=== PATIENT | male | born 1975 | race African-American/Black ===

== ENCOUNTER 2017-08-30 15:42 | Emergency (ER) | payer OTHER | END 2017-08-30 22:07 | disposition left against medical advice (07) | LOC: FTE 15:42 | DX: Z53.21 Procedure and treatment not carried out due to patient leaving prior to being seen by health care provider (principal) ==

== ENCOUNTER 2017-09-05 16:53 | Emergency (ER) | payer OTHER ==
[2017-09-05 20:28] LABS: ADD MAN DIFF? NO
[2017-09-05 20:29] LABS: BASOPHILS % 0.2 % (0.0-2.0); EOSINOPHILS # 0.1 10^3/ul (0.0-0.5); EOSINOPHILS % 1.7 % (0.0-7.0); HEMATOCRIT 38.3 % (42.0-52.0); HEMOGLOBIN 12.3 g/dl (14.0-18.0); LYMPHOCYTES # 2.7 10^3/ul (0.8-2.9); LYMPHOCYTES % 32.1 % (15.0-51.0); MEAN CORPUSCULAR HEMOGLOBIN 28.2 pg (29.0-33.0); MEAN CORPUSCULAR HGB CONC 32.1 g/dl (32.0-37.0); MEAN CORPUSCULAR VOLUME 87.8 fl (82.0-101.0); MEAN PLATELET VOLUME 9.9 fl (7.4-10.4); MONOCYTE # 0.4 10^3/ul (0.3-0.9); MONOCYTES % 4.8 % (0.0-11.0); NEUTROPHIL # 5.1 10^3/ul (1.6-7.5); NEUTROPHILS % 60.8 % (39.0-77.0); PLATELET COUNT 357 10^3/UL (140-415); RED BLOOD COUNT 4.36 10^6/ul (4.70-6.10); RED CELL DISTRIBUTION WIDTH 13.2 % (11.5-14.5)
[2017-09-05 20:29] LABS: WHITE BLOOD COUNT 8.3 10^3/ul (4.8-10.8)
[2017-09-05 20:36] LABS: INR 1.03; PROTIME 13.6 Sec (11.9-14.9); PT RATIO 1.1
[2017-09-05 20:37] LABS: PARTIAL THROMBOPLASTIN TIME 32.2 Sec (25.0-35.0)
[2017-09-05 20:38] LABS: ALANINE AMINOTRANSFERASE 60 IU/L (13-69); ALBUMIN 3.7 g/dl (3.3-4.9); ALBUMIN/GLOBULIN RATIO 0.94; ALKALINE PHOSPHATASE 79 IU/L (42-121); AMYLASE 89 U/L (11-123); ANION GAP 14 (8-16); ASPARTATE AMINO TRANSFERASE 43 IU/L (15-46); BLOOD UREA NITROGEN 16 mg/dl (7-20); CALCIUM 8.9 mg/dl (8.4-10.2); CARBON DIOXIDE 27 mmol/L (21-31); CHLORIDE 106 mmol/L (97-110); CREATININE 1.11 mg/dl (0.61-1.24); GLUCOSE 102 mg/dl (70-220); LIPASE 81 U/L (23-300); POTASSIUM 3.9 mmol/L (3.5-5.1); SODIUM 143 mmol/L (135-144); TOTAL PROTEIN 7.6 g/dl (6.1-8.1)
[2017-09-05] MEDS: ONDANSETRON 4 MG INJ IV (20:45)
[2017-09-05] MEDS: morphine 4 MG/ML VIAL IV (20:45)
[2017-09-05] MEDS: METHYLPREDNISOLONE 125 MG INJ IV (21:10)
[2017-09-05] MEDS: AZITHROMYCIN 500MG/NS (PMX) 250 ML IVPB (21:10)
[2017-09-05] MEDS: CEFTRIAXONE 1 GM/50 ML (PMX) 50 ML IVPB (22:46)
== END 2017-09-06 01:03 | disposition home or self-care (01) ==
LOC: E/R 09-06 01:03
DX: J18.1 Lobar pneumonia, unspecified organism (principal); J45.909 Unspecified asthma, uncomplicated; F17.210 Nicotine dependence, cigarettes, uncomplicated; R07.9 Chest pain, unspecified
CPT/HCPCS: 71045; 80053; 82150; 83690; 85025; 85610; 85730; 87400; 93005; 96374; 96375; 99285-25

== ENCOUNTER 2017-12-09 08:49 | Emergency (ER) | payer OTHER ==
[2017-12-09] MEDS: ALBUTEROL 0.5% (NEB) 2.5 MG/0.5 ML AMP INH (09:33)
[2017-12-09] MEDS: IPRATROPIUM (NEB) 0.5 MG/2.5 ML AMP NEB (09:33)
== END 2017-12-09 10:07 | disposition home or self-care (01) ==
LOC: FTE 08:49
DX: J45.901 Unspecified asthma with (acute) exacerbation (principal); J06.9 Acute upper respiratory infection, unspecified; F17.210 Nicotine dependence, cigarettes, uncomplicated
CPT/HCPCS: 71045; 94644; 99283-25

== ENCOUNTER 2018-06-26 03:41 | Emergency (ER) | payer OTHER ==
[2018-06-26] MEDS: DEXAMETHASONE 10 MG/ML 1 ML INJ IM (04:08)
[2018-06-26] MEDS: ALBUTEROL 0.083% (NEB) 2.5 MG/3 ML AMP HHN (04:11)
[2018-06-26] MEDS: IPRATROPIUM (NEB) 0.5 MG/2.5 ML AMP HHN (04:12)
== END 2018-06-26 04:22 | disposition home or self-care (01) ==
LOC: FTE 03:41
DX: J45.901 Unspecified asthma with (acute) exacerbation (principal); F17.210 Nicotine dependence, cigarettes, uncomplicated; Z21 Asymptomatic human immunodeficiency virus [HIV] infection status
CPT/HCPCS: 99283-25; Z7502

== ENCOUNTER 2018-07-11 02:38 | Emergency (ER) | payer OTHER | END 2018-07-11 03:20 | disposition home or self-care (01) | LOC: FTE 02:38 | DX: Z76.0 Encounter for issue of repeat prescription (principal); J45.909 Unspecified asthma, uncomplicated; Z21 Asymptomatic human immunodeficiency virus [HIV] infection status; Z87.891 Personal history of nicotine dependence | CPT/HCPCS: 99281; Z7502 ==

== ENCOUNTER 2018-08-07 06:03 | Emergency (ER) | payer OTHER | END 2018-08-07 06:50 | disposition home or self-care (01) | LOC: FTE 06:03 | DX: Z76.0 Encounter for issue of repeat prescription (principal); J45.909 Unspecified asthma, uncomplicated | CPT/HCPCS: 99281; Z7502 ==

== ENCOUNTER 2018-09-22 16:42 | Emergency (ER) | payer OTHER ==
[2018-09-22 17:25] LABS: ADD MAN DIFF? NO
[2018-09-22] MEDS: ALBUTEROL 0.5% (NEB) 2.5 MG/0.5 ML AMP INH (17:29)
[2018-09-22] MEDS: IPRATROPIUM (NEB) 0.5 MG/2.5 ML AMP INH (17:29)
[2018-09-22 17:32] LABS: BASOPHILS % 0.4 % (0.0-2.0); EOSINOPHILS # 0.1 10^3/ul (0.0-0.5); EOSINOPHILS % 0.7 % (0.0-7.0); HEMATOCRIT 40.1 % (42.0-52.0); LYMPHOCYTES # 1.2 10^3/ul (0.8-2.9); LYMPHOCYTES % 16.4 % (15.0-51.0); MEAN CORPUSCULAR HEMOGLOBIN 29.3 pg (29.0-33.0); MEAN CORPUSCULAR HGB CONC 32.4 g/dl (32.0-37.0); MEAN CORPUSCULAR VOLUME 90.3 fl (82.0-101.0); MEAN PLATELET VOLUME 10.5 fl (7.4-10.4); MONOCYTE # 0.8 10^3/ul (0.3-0.9); MONOCYTES % 11.4 % (0.0-11.0); NEUTROPHIL # 5.2 10^3/ul (1.6-7.5); PLATELET COUNT 232 10^3/UL (140-415); RED BLOOD COUNT 4.44 10^6/ul (4.70-6.10); RED CELL DISTRIBUTION WIDTH 12.4 % (11.5-14.5)
[2018-09-22 17:32] LABS: WHITE BLOOD COUNT 7.3 10^3/ul (4.8-10.8)
[2018-09-22] MEDS: METHYLPREDNISOLONE 125 MG INJ IV (17:37)
[2018-09-22] MEDS: CEFTRIAXONE 1 GM/50 ML (PMX) 50 ML IVPB (17:37)
[2018-09-22] MEDS: SODIUM CHLORIDE 0.9% 1L BAG IV* (17:37)
[2018-09-22] MEDS: IBUPROFEN 600 MG TAB PO (17:38)
[2018-09-22 17:47] LABS: INR 1.05; PROTIME 13.8 Sec (11.9-14.9); PT RATIO 1.1
[2018-09-22 17:49] LABS: ALANINE AMINOTRANSFERASE 11 IU/L (13-69); ALBUMIN 4.1 g/dl (3.3-4.9); ALBUMIN/GLOBULIN RATIO 1.24; ALKALINE PHOSPHATASE 102 IU/L (42-121); ANION GAP 11 (5-13); ASPARTATE AMINO TRANSFERASE 27 IU/L (15-46); BILIRUBIN,INDIRECT 0.2 mg/dl (0-1.1); BILIRUBIN,TOTAL 0.2 mg/dl (0.2-1.3); BLOOD UREA NITROGEN 15 mg/dl (7-20); CALCIUM 8.9 mg/dl (8.4-10.2); CARBON DIOXIDE 26 mmol/L (21-31); CHLORIDE 103 mmol/L (97-110); CREATININE 1.13 mg/dl (0.61-1.24); Estimated GFR > 60 mL/min (>60); GLUCOSE 105 mg/dl (70-220); LIPASE 25 U/L (23-300); POTASSIUM 4.1 mmol/L (3.5-5.1); SODIUM 140 mmol/L (135-144); TOTAL PROTEIN 7.4 g/dl (6.1-8.1)
[2018-09-22 18:01] LABS: TROPONIN-I < 0.012 ng/ml (0.000-0.120)
[2018-09-22] MEDS: AZITHROMYCIN 500MG/NS (PMX) 250 ML IVPB (19:00)
[2018-09-22 21:28] LABS: LACTIC ACID 2.7 mmol/L (0.5-2.0)
== END 2018-09-22 22:15 | disposition short-term general hospital (02) ==
LOC: E/R 22:15
DX: J45.41 Moderate persistent asthma with (acute) exacerbation (principal); B20 Human immunodeficiency virus [HIV] disease; F15.10 Other stimulant abuse, uncomplicated; Z87.891 Personal history of nicotine dependence
CPT/HCPCS: 36415; 71045; 80053; 83605; 83690; 84484; 85025; 85610; 85730; 87040; 87400; 93005; 94644; 96374; 96375; 99285-25

== ENCOUNTER 2018-10-14 18:18 | Emergency (ER) | payer OTHER | END 2018-10-14 22:40 | disposition home or self-care (01) | LOC: FTE 18:18 | DX: J45.901 Unspecified asthma with (acute) exacerbation (principal); Z21 Asymptomatic human immunodeficiency virus [HIV] infection status; Z76.0 Encounter for issue of repeat prescription | CPT/HCPCS: 99281 ==

== ENCOUNTER 2018-11-02 10:40 | Emergency (ER) | payer OTHER ==
[2018-11-02] MEDS: predniSONE 20 MG TAB PO (11:01)
== END 2018-11-02 11:42 | disposition home or self-care (01) ==
LOC: E/R 10:40
DX: J45.901 Unspecified asthma with (acute) exacerbation (principal); Z21 Asymptomatic human immunodeficiency virus [HIV] infection status; Z87.891 Personal history of nicotine dependence
CPT/HCPCS: 99283; Z7502

== ENCOUNTER 2019-01-01 01:31 | Emergency (ER) | payer OTHER | END 2019-01-01 03:39 | disposition home or self-care (01) | LOC: FTE 01:31 | DX: Z76.0 Encounter for issue of repeat prescription (principal); J45.909 Unspecified asthma, uncomplicated; Z21 Asymptomatic human immunodeficiency virus [HIV] infection status | CPT/HCPCS: 99281; Z7502 ==

== ENCOUNTER 2019-01-09 08:58 | Emergency (ER) | payer OTHER ==
[2019-01-09] MEDS: IPRATROPIUM (NEB) 0.5 MG/2.5 ML AMP NEB (09:17)
[2019-01-09] MEDS: ALBUTEROL 0.5% (NEB) 2.5 MG/0.5 ML AMP INH (09:17)
== END 2019-01-09 10:38 | disposition home or self-care (01) ==
LOC: E/R 08:58
DX: J45.21 Mild intermittent asthma with (acute) exacerbation (principal); Z76.0 Encounter for issue of repeat prescription; Z21 Asymptomatic human immunodeficiency virus [HIV] infection status
CPT/HCPCS: 94644; 99283-25

== ENCOUNTER 2019-01-10 11:03 | Emergency (ER) | payer OTHER ==
[2019-01-10] MEDS ORDERED: predniSONE 20 MG TAB PO (11:21)
[2019-01-10] MEDS: IPRATROPIUM (NEB) 0.5 MG/2.5 ML AMP NEB (11:24)
[2019-01-10] MEDS: ALBUTEROL 0.5% (NEB) 2.5 MG/0.5 ML AMP NEB (11:24)
== END 2019-01-10 12:51 | disposition home or self-care (01) ==
LOC: E/R 11:03
DX: J45.21 Mild intermittent asthma with (acute) exacerbation (principal); Z21 Asymptomatic human immunodeficiency virus [HIV] infection status
CPT/HCPCS: 94644; 99283-25

== ENCOUNTER 2019-01-11 20:27 | Emergency (ER) | payer OTHER ==
[2019-01-11] MEDS: IPRATROPIUM (NEB) 0.5 MG/2.5 ML AMP INH (21:14)
[2019-01-11] MEDS: LEVALBUTEROL (NEB) 1.25 MG/0.5 ML AMP INH (21:14)
[2019-01-11] MEDS ORDERED: SOD CHLORIDE 0.9% 1,000 ML IV (21:30)
[2019-01-11] MEDS ORDERED: METHYLPREDNISOLONE 125 MG INJ IV (21:30)
[2019-01-11] MEDS ORDERED: MAGNESIUM SULFATE 2 GM/50 ML 50 ML IVPB (21:30)
[2019-01-11] MEDS: predniSONE 20 MG TAB PO (22:51)
== END 2019-01-12 00:25 | disposition home or self-care (01) ==
LOC: E/R 01-12 00:25
DX: J45.901 Unspecified asthma with (acute) exacerbation (principal)
CPT/HCPCS: 71045; 94644; 99283-25

== ENCOUNTER 2019-01-12 08:36 | Emergency (ER) | payer OTHER ==
[2019-01-12] MEDS: ALBUTEROL HFA 8 GM INHALER INH (09:35)
[2019-01-12] MEDS: ALBUTEROL 0.083% (NEB) 2.5 MG/3 ML AMP NEB (10:02)
== END 2019-01-12 11:38 | disposition left against medical advice (07) ==
LOC: FTE 08:36
DX: J45.901 Unspecified asthma with (acute) exacerbation (principal); Z21 Asymptomatic human immunodeficiency virus [HIV] infection status
CPT/HCPCS: 94664; 99284-25

== ENCOUNTER 2019-01-20 08:39 | Emergency (ER) | payer OTHER ==
[2019-01-20] MEDS: DEXAMETHASONE 4 MG TAB PO (09:05)
== END 2019-01-20 09:47 | disposition home or self-care (01) ==
LOC: E/R 08:39
DX: J45.21 Mild intermittent asthma with (acute) exacerbation (principal); Z21 Asymptomatic human immunodeficiency virus [HIV] infection status
CPT/HCPCS: 99283; Z7502

== ENCOUNTER 2019-02-10 11:42 | Emergency (ER) | payer OTHER ==
[2019-02-10] MEDS: ALBUTEROL 0.5% (NEB) 2.5 MG/0.5 ML AMP INH ×2 (11:55→21:34)
[2019-02-10] MEDS: IPRATROPIUM (NEB) 0.5 MG/2.5 ML AMP NEB (11:56)
[2019-02-10 14:41] LABS: ADD MAN DIFF? NO
[2019-02-10 14:42] LABS: WHITE BLOOD COUNT 10.8 10^3/ul (4.8-10.8)
[2019-02-10 14:42] LABS: BASOPHILS % 0.4 % (0.0-2.0); EOSINOPHILS # 0.3 10^3/ul (0.0-0.5); EOSINOPHILS % 2.8 % (0.0-7.0); HEMATOCRIT 46.2 % (42.0-52.0); HEMOGLOBIN 14.4 g/dl (14.0-18.0); LYMPHOCYTES # 0.9 10^3/ul (0.8-2.9); LYMPHOCYTES % 8.1 % (15.0-51.0); MEAN CORPUSCULAR HEMOGLOBIN 27.9 pg (29.0-33.0); MEAN CORPUSCULAR HGB CONC 31.2 g/dl (32.0-37.0); MEAN CORPUSCULAR VOLUME 89.5 fl (82.0-101.0); MEAN PLATELET VOLUME 9.5 fl (7.4-10.4); MONOCYTE # 0.6 10^3/ul (0.3-0.9); MONOCYTES % 5.6 % (0.0-11.0); NEUTROPHILS % 82.7 % (39.0-77.0); PLATELET COUNT 262 10^3/UL (140-415); RED BLOOD COUNT 5.16 10^6/ul (4.70-6.10); RED CELL DISTRIBUTION WIDTH 13.1 % (11.5-14.5)
[2019-02-10] MEDS: MAGNESIUM SULFATE 2 GM/50 ML 50 ML IVPB (14:45)
[2019-02-10] MEDS: METHYLPREDNISOLONE 125 MG INJ IV (14:45)
[2019-02-10 15:03] LABS: ANION GAP 12 (5-13); BLOOD UREA NITROGEN 18 mg/dl (7-20); CALCIUM 9.1 mg/dl (8.4-10.2); CARBON DIOXIDE 29 mmol/L (21-31); CHLORIDE 104 mmol/L (97-110); CREATININE 1.05 mg/dl (0.61-1.24); Estimated GFR > 60 mL/min (>60); GLUCOSE 121 mg/dl (70-220); INR 0.91; POTASSIUM 3.9 mmol/L (3.5-5.1); PROTIME 12.4 Sec (11.9-14.9); SODIUM 145 mmol/L (135-144)
[2019-02-10 15:04] LABS: PARTIAL THROMBOPLASTIN TIME 30.3 Sec (23.0-35.0)
[2019-02-10 15:15] LABS: TROPONIN-I < 0.012 ng/ml (0.000-0.120)
[2019-02-10] MEDS: ALBUTEROL 0.083% (NEB) 2.5 MG/3 ML AMP HHN ×2 (15:57→20:48)
[2019-02-10] MEDS: IPRATROPIUM (NEB) 0.5 MG/2.5 ML AMP HHN (15:57)
[2019-02-10] MEDS: IPRATROPIUM (NEB) 0.5 MG/2.5 ML AMP INH (21:34)
== END 2019-02-11 00:16 | disposition short-term general hospital (02) ==
LOC: E/R 02-11 00:16
DX: J45.41 Moderate persistent asthma with (acute) exacerbation (principal); Z21 Asymptomatic human immunodeficiency virus [HIV] infection status
CPT/HCPCS: 36415; 71045; 80048; 83605; 84484; 85025; 85610; 85730; 93005; 94644; 94645; 94664; 96374; 96375; 99285-25